=== PATIENT | male | born 2005 | race Hispanic/Latino ===

== ENCOUNTER → 2024-08-08 | Outpatient (CLI) | payer OTHER | LOC: M RAD 15:42 | PROVIDERS: ATTEND Otolaryngology | DX: J33.0 Polyp of nasal cavity (principal) ==

== ENCOUNTER 2024-11-14 09:27 | Day surgery (SDC) | payer OTHER ==
[~2024-11-14] VITALS: Ht 180.3 cm; Wt 81.6 kg
[2024-11-14] MEDS ORDERED: ONDANSETRON 4MG 2ML VIAL As Ordered ONE (11:31)
[2024-11-14] MEDS ORDERED: ROCURONIUM BROMIDE 50MG/5ML VIAL As Ordered ONE (11:31)
[2024-11-14] MEDS ORDERED: propofoL 200 MG/20 ML VIAL As Ordered ONE (11:31)
[2024-11-14] MEDS ORDERED: LIDOCAINE 2% 100MG/5ML SDV (FOR ANES.) As Ordered ONE (11:31)
[2024-11-14] MEDS ORDERED: SUGAMMADEX SODIUM 500 MG/5 ML VIAL (BRIDION) As Ordered ONE (11:31)
[2024-11-14] MEDS ORDERED: fentaNYL 250 MCG/5 ML INJECTION As Ordered ONE (11:35)
[2024-11-14] MEDS ORDERED: MIDAZOLAM INJ 2MG/2ML VIAL As Ordered ONE (11:36)
[2024-11-14] MEDS: COCAINE 4% 4ML NASAL SOLUTION BTL As Ordered ONE (13:16)
[2024-11-14] MEDS ORDERED: ACETAMINOPHEN 1000MG/100ML IV BAG As Ordered ONE (13:20)
[2024-11-14] MEDS: LIDOCAINE W/EPINEPHRINE 1% 20ML VIAL As Ordered ONE (13:20)
[2024-11-14] MEDS ORDERED: LACRILUBE (AKWA TEARS) OPHTH OINT 3.5GM As Ordered ONE (13:21)
[2024-11-14] MEDS ORDERED: LABETALOL 100MG/20ML VIAL As Ordered ONE (13:27)
[2024-11-14] MEDS: OXYMETAZOLINE 0.05% NASAL SPRAY (AFRIN) As Ordered ONE (13:32)
[2024-11-14] MEDS ORDERED: HYDROmorphone HCL 2MG/ML 1ML VIAL As Ordered ONE (13:36)
[2024-11-14] MEDS ORDERED: PHENYLephrine 500MCG 5ML (100MCG/ML) SYRINGE As Ordered ONE (14:13)
[2024-11-14] MEDS ORDERED: MORPHINE 2 MG/ML 1ML VIAL IV PRN (16:00)
[2024-11-14] MEDS ORDERED: oxyCODONE 5MG TAB PO PRN (16:00)
[2024-11-14] MEDS ORDERED: fentaNYL 100 MCG/2 ML INJECTION IV PRN (16:00)
[2024-11-14] MEDS ORDERED: ONDANSETRON 4MG 2ML VIAL IV PRN (16:00)
[2024-11-14 17:22] VITALS: BP 136/75; TEMP 97.9; O2SAT 96
== END 2024-11-14 17:24 | disposition home or self-care (01) ==
LOC: M SDC 09:27
PROVIDERS: ATTEND Otolaryngology
DX: J32.8 Other chronic sinusitis (principal); J34.2 Deviated nasal septum; J33.0 Polyp of nasal cavity
CPT/HCPCS: 30520; 31257; 31267; 31276; 61782; 88305; A6024; C9143; J0131; J1100; J1171; J1920; J2250; J2371; J2405; J3010